=== PATIENT | female | born 1995 | race Caucasian/White ===

== ENCOUNTER 2016-08-15 13:05 | Emergency (ER) | payer SELFPAY ==
[~2016-08-15] VITALS: Ht 175.3 cm; Wt 63.6 kg
[2016-08-15 13:07] VITALS: BP 129/64; PULSE 72; RESP 12; TEMP 98; O2SAT 100
== END 2016-08-15 17:35 | disposition left against medical advice (07) ==
LOC: NED 13:05
DX: R11.10 Vomiting, unspecified (principal)
CPT/HCPCS: 99281